=== PATIENT | female | born 1965 | race Caucasian/White ===

== ENCOUNTER 2018-09-12 17:04 | Emergency (ER) | payer OTHER ==
[~2018-09-12] VITALS: Ht 160 cm; Wt 90.7 kg
[~2018-09-12 17:04] MED LIST: FLEXERIL PO; IBUPROFEN; VICODIN 5-5001 EACH PO
[2018-09-12] MEDS ORDERED: DOXYCYCLINE 10100 MG PO (17:42)
[2018-09-12 17:59] VITALS: BP 104/77
== END 2018-09-12 18:00 | disposition home or self-care (01) ==
LOC: M.ERS 17:04
DX: S20.162A Insect bite (nonvenomous) of breast, left breast, initial encounter (principal); Z98.890 Other specified postprocedural states; Z90.710 Acquired absence of both cervix and uterus; Z90.49 Acquired absence of other specified parts of digestive tract; Z88.5 Allergy status to narcotic agent; Z88.6 Allergy status to analgesic agent; Z88.8 Allergy status to other drugs, medicaments and biological substances; W57.XXXA Bitten or stung by nonvenomous insect and other nonvenomous arthropods, initial encounter; Y93.89 Activity, other specified; Y92.89 Other specified places as the place of occurrence of the external cause; Y99.8 Other external cause status

== ENCOUNTER → 2019-10-22 | Outpatient (CLI) | payer BC ==
[~2019-10-22] MED LIST changes: +DOXYCYCLINE 10100 MG PO
== END ==
LOC: M.CT 09:00
PROVIDERS: ATTEND Nurse Practitioner
DX: K57.92 Diverticulitis of intestine, part unspecified, without perforation or abscess without bleeding (principal); E03.9 Hypothyroidism, unspecified; E78.5 Hyperlipidemia, unspecified; R87.89 Other abnormal findings in specimens from female genital organs; K57.30 Diverticulosis of large intestine without perforation or abscess without bleeding